=== PATIENT | female | born 1965 | race Caucasian/White ===

== ENCOUNTER 2017-10-06 23:33 | Emergency (ER) | payer OTHER, BC ==
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
--- NOTE | 2017-10-07 06:58 | CR ---
Chest and right ribs: Frontal view of the chest is obtained as well as three views of the right ribs. Comparison: No previous study. Heart size and mediastinum are normal. Mild atelectasis or scarring is noted within the left lung base. Lungs otherwise are clear. Previous lower lumbar spine surgery is noted. Slightly displaced fractures are seen within the approximate fourth, fifth and sixth right ribs. Impression: 1. At least 3 right upper rib fractures. 2. Nothing acute is seen on accompanying chest x-ray. Diagnostic code #3
== END 2017-10-07 00:38 | disposition home or self-care (01) ==
LOC: JD.ED 23:33
DX: S22.31XA Fracture of one rib, right side, initial encounter for closed fracture (principal); V89.2XXA Person injured in unspecified motor-vehicle accident, traffic, initial encounter
CPT/HCPCS: 71101-26-RT; 71101-RT; 99284

== ENCOUNTER 2019-02-04 19:44 | Emergency (ER) | payer BC, OTHER ==
[2019-02-04] MEDS ORDERED: Lidocaine 1% 10 ML MDV INJECT ONE (20:10)
[2019-02-04] MEDS ORDERED: Diphtheria,Pertussis(Acell),Tetanus Vaccine 0.5 ML Syringe IM ONE (20:10)
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
--- NOTE | 2019-02-07 08:08 | CR ---
Left hand: Two views of the left hand were obtained. Comparison: No prior hand exam. Joint spaces are preserved. No fracture, dislocation or other bony abnormality is identified. No opaque soft tissue foreign body is seen. Impression: 1. No discrete abnormality is seen on two-view left hand exam. Diagnostic code #1
== END 2019-02-04 21:05 | disposition home or self-care (01) ==
LOC: JD.ED 19:44
DX: S61.432A Puncture wound without foreign body of left hand, initial encounter (principal); Z23 Encounter for immunization; W27.8XXA Contact with other nonpowered hand tool, initial encounter
CPT/HCPCS: 73120-26-LT; 73120-LT; 90471; 90700; 99282; 99283-25